=== PATIENT | female | born 1980 | race Caucasian/White ===

== ENCOUNTER 2016-09-02 14:45 | Outpatient (CLI) | payer OTHER, MEDICAID | END 2016-09-02 14:46 | disposition home or self-care (01) | DX: M50.30 Other cervical disc degeneration, unspecified cervical region (principal); M47.812 Spondylosis without myelopathy or radiculopathy, cervical region; M51.36 Other intervertebral disc degeneration, lumbar region; Z98.1 Arthrodesis status; M41.86 Other forms of scoliosis, lumbar region; M41.84 Other forms of scoliosis, thoracic region; G35 Multiple sclerosis ==

== ENCOUNTER 2017-03-29 10:25 | Outpatient (CLI) | payer OTHER, MEDICAID ==
[2017-03-29 18:11] LABS: ALBUMIN/GLOBULIN RATIO 1.3 (1.0-2.2); BILIRUBIN,TOTAL 0.4 mg/dL (0.2-1.0); CALCIUM 9.9 mg/dL (8.5-10.3); POTASSIUM 3.6 mmol/L (3.5-5.0); TOTAL PROTEIN 7.2 g/dL (6.7-8.2)
== END 2017-03-29 10:26 | disposition home or self-care (01) ==
LOC: LAB.F 10:25
PROVIDERS: ATTEND Psychiatry & Neurology Psychiatry
DX: F31.9 Bipolar disorder, unspecified (principal)
CPT/HCPCS: 36415; 80053; 80178

== ENCOUNTER 2017-07-12 10:14 | Outpatient (CLI) | payer MEDICARE, OTHER, MEDICAID | END 2017-07-12 10:15 | disposition home or self-care (01) | LOC: LAB.F 10:14 | PROVIDERS: ATTEND Psychiatry & Neurology Psychiatry | DX: F31.9 Bipolar disorder, unspecified (principal); G47.00 Insomnia, unspecified; F41.9 Anxiety disorder, unspecified | CPT/HCPCS: 36415; 80178; 82565 ==

== ENCOUNTER 2017-09-01 11:27 | Outpatient (CLI) | payer MEDICARE, OTHER, MEDICAID ==
--- NOTE | 2017-09-02 10:06 | Ultrasound Report ---
DATE OF SERVICE: 09/01/2017 PELVIC ULTRASOUND: 09/01/2017 CLINICAL INDICATION: Absence of menses. TECHNIQUE: Transabdominal pelvic ultrasound performed for global evaluation. Real-time scanning performed and static images obtained. The patient declined transvaginal imaging. FINDINGS: The uterus is anteverted, measuring 5.4 x 3.5 x 2.3 cm. The endometrial echo complex measures 5 mm. No focal myometrial lesion is appreciated. The ovaries are normal, with the right measuring 2.3 x 2.2 x 1.1 cm and the left measuring 2.2 x 1.5 x 1.2 cm. No free fluid is present. IMPRESSION: NORMAL TRANSABDOMINAL PELVIC ULTRASOUND. TD: 09/02/2017 11:05
== END 2017-09-01 11:28 | disposition home or self-care (01) ==
LOC: DI 11:27
PROVIDERS: ATTEND Internal Medicine
DX: N91.2 Amenorrhea, unspecified (principal)
CPT/HCPCS: 76856

== ENCOUNTER 2020-10-14 11:21 | Outpatient (CLI) | payer MEDICARE, OTHER, MEDICAID ==
[2020-10-14 12:19] LABS: BUN - BLOOD UREA NITROGEN 15 mg/dL (6-20); CALCIUM 9.9 mg/dL (8.5-10.3); CARBON DIOXIDE - CO2 25 mmol/L (21-32); CHLORIDE 103 mmol/L (101-111); CHOL/HDL RATIO 3.2 (<4.4); CHOLESTEROL 213 mg/dL; CREATININE 0.9 mg/dL (0.4-1.0); GFR - MDRD 70 (>89); GLUCOSE 94 mg/dL (70-100); HDL CHOLESTEROL 67 mg/dL; LDL CHOLESTEROL,CALCULATED 122 mg/dL; LDL/HDL RATIO 1.8 (<4.4); POTASSIUM 3.4 mmol/L (3.5-5.0); SODIUM 137 mmol/L (135-145); TRIGLYCERIDES 121 mg/dL; VLDL CHOLESTEROL 24 mg/dL
[2020-10-14 12:44] LABS: ESTIMATED AVERAGE GLUCOSE 103 mg/dL (70-100); HEMOGLOBIN A1c% 5.2 % (4.27-6.07)
[2020-10-14 13:11] LABS: LITHIUM 1.08 mmol/L
== END 2020-10-14 11:22 | disposition home or self-care (01) ==
LOC: LAB 11:21
PROVIDERS: ATTEND Psychiatry & Neurology Psychiatry
DX: Z51.81 Encounter for therapeutic drug level monitoring (principal); Z79.899 Other long term (current) drug therapy
CPT/HCPCS: 36415; 80048; 80061; 80178; 83036; 83721; 84443

== ENCOUNTER 2020-10-14 11:58 | Outpatient (CLI) | payer MEDICARE, OTHER, MEDICAID | END 2020-10-14 11:59 | disposition home or self-care (01) | LOC: RT 11:58 | PROVIDERS: ATTEND Psychiatry & Neurology Psychiatry | DX: Z51.81 Encounter for therapeutic drug level monitoring (principal); Z79.899 Other long term (current) drug therapy | CPT/HCPCS: 36415; 80048; 80061; 80178; 83036; 83721; 84443; 93005 ==

== ENCOUNTER 2021-12-25 11:58 | Outpatient (CLI) | payer MEDICARE, OTHER, MEDICAID ==
[2021-12-25 12:55] LABS: BUN - BLOOD UREA NITROGEN 18 mg/dL (6-20); CALCIUM 9.9 mg/dL (8.5-10.3); CARBON DIOXIDE - CO2 25 mmol/L (21-32); CHLORIDE 106 mmol/L (101-111); CHOL/HDL RATIO 3.4 (<4.4); CHOLESTEROL 224 mg/dL; CREATININE 0.9 mg/dL (0.4-1.0); GFR - MDRD 70 (>89); GLUCOSE 103 mg/dL (70-100); HDL CHOLESTEROL 65 mg/dL; LDL CHOLESTEROL,CALCULATED 132 mg/dL; SODIUM 139 mmol/L (135-145); TRIGLYCERIDES 134 mg/dL; VLDL CHOLESTEROL 27 mg/dL
[2021-12-25 13:03] LABS: T4 (THYROXINE) 10.71 ug/dL (6.09-12.23)
[2021-12-25 13:07] LABS: THYROID STIMULATING HORMONE 0.75 uIU/mL (0.34-5.60)
[2021-12-25 13:12] LABS: LITHIUM 1.02 mmol/L
[2021-12-25 13:20] LABS: ESTIMATED AVERAGE GLUCOSE 103 mg/dL (70-100); HEMOGLOBIN A1c% 5.2 % (4.27-6.07)
== END 2021-12-25 11:59 | disposition home or self-care (01) ==
LOC: RT 11:58
PROVIDERS: ATTEND Psychiatry & Neurology Psychiatry
DX: Z79.899 Other long term (current) drug therapy (principal); F31.89 Other bipolar disorder
CPT/HCPCS: 36415; 80048; 80061; 80178; 83036; 83721; 84436; 84443; 84480; 93005

== ENCOUNTER 2023-04-26 09:18 | Outpatient (CLI) | payer MEDICARE, OTHER, MEDICAID ==
[2023-04-26 14:36] LABS: ALBUMIN 4.5 g/dL (3.2-5.5); ALBUMIN/GLOBULIN RATIO 1.5 (1.0-2.2); BILIRUBIN,TOTAL 0.3 mg/dL (0.2-1.0); CALCIUM 10.3 mg/dL (8.5-10.3); POTASSIUM 3.9 mmol/L (3.5-4.5); TOTAL PROTEIN 7.5 g/dL (6.4-8.9)
[2023-04-26 14:56] LABS: LITHIUM 1.46 mmol/L
[2023-04-26 14:59] LABS: THYROID STIMULATING HORMONE 3.67 uIU/mL (0.34-5.60)
[2023-04-26 21:53] LABS: ESTIMATED AVERAGE GLUCOSE 108 mg/dL (70-100); HEMOGLOBIN A1c% 5.4 % (4.27-6.07)
== END 2023-04-26 09:19 | disposition home or self-care (01) ==
LOC: LAB.S 09:18
PROVIDERS: ATTEND Internal Medicine
DX: Z00.00 Encounter for general adult medical examination without abnormal findings (principal); G80.9 Cerebral palsy, unspecified; R73.9 Hyperglycemia, unspecified; G40.909 Epilepsy, unspecified, not intractable, without status epilepticus; Z79.899 Other long term (current) drug therapy
CPT/HCPCS: 36415; 80053; 80177; 80178; 83036; 84439; 84443; 84481; 85025

== ENCOUNTER 2024-02-06 12:27 | Outpatient (CLI) | payer MEDICARE, OTHER, MEDICAID | END 2024-02-06 12:28 | disposition home or self-care (01) | LOC: DI 12:27 | PROVIDERS: ATTEND Internal Medicine | DX: R60.9 Edema, unspecified (principal) | CPT/HCPCS: 93307 ==